=== PATIENT | female | born 1955 | race Caucasian/White ===

== ENCOUNTER 2019-10-01 07:41 | Outpatient (CLI) | payer BC, SELFPAY ==
--- NOTE | ~2019-10-01 | CT_ITS ---
EXAMINATION: CT chest w con DATE: 10/01/2019 08:16 INDICATION: Restaging lung cancer TECHNIQUE: Computed tomography (CT) of the chest was performed with 75 cc Omnipaque 350 intravenous c ontrast. The dose-length product was 244.08 mGy-cm. Automated exposure control and iterative reconstr uction technique were employed. COMPARISON: CT dated 05/24/2019 and 02/15/2019 FINDINGS: Stable left hilar lymphadenopathy. No significant vascular abnormality. No significant pleu ral or pericardial effusion. There is fatty infiltration of the liver. There is a left renal cyst par tially visualized. Stable appearance to bandlike consolidation in the left upper lobe, consistent wit h treated bronchogenic carcinoma. Moderate emphysema. No endobronchial lesions. No osteolytic or scle rotic lesions are identified. IMPRESSION: 1. Stable bandlike consolidation left upper lobe consistent with treated Isabella bronchogenic carcinoma . 2: Stable left hilar lymphadenopathy, reactive versus metastatic disease. Reviewed, dictated and finalized at location A. IMPRESSION: 1. Stable bandlike consolidation left upper lobe consistent with treated Isabella bronchogenic carcinoma. 2: Stable left hilar lymphadenopathy, reactive versus metastatic disease.
[2019-10-01 08:05] LABS: Estimated Glomerular Filt Rate > 60
== END 2019-10-01 07:42 | disposition home or self-care (01) ==
LOC: ANHIMG 07:43
PROVIDERS: PCP Family Medicine; Visit Provider Internal Medicine Medical Oncology
DX: C34.12 Malignant neoplasm of upper lobe, left bronchus or lung (principal); R59.0 Localized enlarged lymph nodes; R91.8 Other nonspecific abnormal finding of lung field
CPT/HCPCS: 36415; 71260; Q9967

== ENCOUNTER 2019-11-12 09:46 | Emergency (ER) | payer BC, SELFPAY ==
--- NOTE | ~2019-11-12 | XR_ITS ---
EXAMINATION: XR knee RT min 4V DATE: 11/12/2019 10:10 INDICATION: Right knee injury and pain. TECHNIQUE: 4 views of right knee were obtained. COMPARISON: None. FINDINGS: Bone alignment is normal. No fracture. There is severe osteoarthritis of medial compartment , mild osteoarthritis of lateral compartment, and moderate osteoarthritis of patellofemoral compartme nt. There is a small knee joint effusion. There are loose bodies in the posterior aspect of the knee joint. IMPRESSION: 1. Severe right knee osteoarthritis. 2. Small right knee joint effusion with loose bodies. Reviewed, dictated and finalized at location A.
[2019-11-12 09:51] VITALS: BP 186/65; PULSE 75; RESP 18; TEMP 36.9; O2SAT 95
--- NOTE | 2019-11-12 09:56 | ED.LOWEXIN ---
HPI - Extremity Injury (Lower) General Chief Complaint: Extremity Injury, Lower Stated Complaint: leg pain Time Seen by Provider: 11/12/19 09:51 Source: RN notes reviewed History of Present Illness HPI Narrative: Patient presents emergency department from home for right knee pain. Patient states symptoms began last night. She states she has been walking with a cane and she stood up and went to twist twisting her right knee. She states she had pain and swelling her right knee since that time she denies any falls denies any pain in the ankle or hip she states she did take a pain pill this morning with no relief Related Data Home Medications Medication Instructions Recorded Confirmed [id number] INHALATION 11/12/19 [Trelegy Ellipta] pantoprazole PO 11/12/19 11/12/19 Allergies Allergy/AdvReac Type Severity Reaction Status Date / Time Penicillins Allergy Unknown rash Verified 11/12/19 09:55 Review of Systems Review of Systems: Narrative: Gen.: Denies fevers or chills Musculoskeletal: See HPI Neuro: Denies numbness, tingling, weakness Skin: Denies rash Endo: Denies DM PMFSH Past Medical History Medical History Arthralgia Essential (primary) hypertension History of tobacco use Lung cancer Second hand smoke exposure Surgical History Surgical History History of bilateral tubal ligation Social History Social History Smoking packs per day: 1.5 Smoking cigarettes per day: 30.0 Years smoked: 40 Smoking pack-years: 60.00 Smoking status: Former smoker Tobacco type: cigarettes Second hand tobacco smoke exposure: Yes Alcohol intake: current Substance use: never Substance use type: does not use Gender identity (if verbalized by the patient): Female Exam Narrative: Exam Narrative: APPEARANCE: No acute distress, nontoxic, resting in bed Eyes: EOMI HEENT: Normocephalic, atraumatic, RESPIRATORY: No respiratory distress MUSCULOSKELETAl: Tender to palpation over the right anterior medial lateral knee with mild swelling, no tenderness of the right hip or ankle, pain with flexion greater than 45 degrees, dorsalis pedis pulse 2+, neurovascular intact NEURO: Awake and alert. Following commands, speech normal, no focal deficits SKIN:: Warm, dry. Normal Color no rash or lesions Course Course Emergency Course: Discussed with patient results of workup and diagnosis. Discussed need for follow-up with primary care, proper use of medication, and reasons to return to the emergency department. Patient understands and agrees to current treatment plan Vital Signs Vital signs: Vital Signs Temperature 98.4 F 11/12/19 09:51 Pulse Rate 75 11/12/19 09:51 Respiratory Rate 18 11/12/19 09:51 Blood Pressure 186/65 H 11/12/19 09:51 Pulse Oximetry 95 11/12/19 09:51 Temperature 98.4 F 11/12/19 09:51 Pulse Rate 75 11/12/19 09:51 Respiratory Rate 18 11/12/19 09:51 Blood Pressure 186/65 H 11/12/19 09:51 Pulse Oximetry 95 11/12/19 09:51 MDM - Extremity Injury (Lower) Imaging Data Radiologist's impression: ITS Impressions Knee X-Ray 11/12/19 10:17 IMPRESSION: 1. Severe right knee osteoarthritis. 2. Small right knee joint effusion with loose bodies. Discharge Plan Discharge Clinical Impression: Right knee sprain Patient Disposition: Home, Self-Care Condition: Stable Instructions: Antibiotic Form, Knee Sprain (ED) Additional Instructions: Return for increasing pain, numbness or tingling in extremities or any other symptoms of concern Prescriptions: No Action cholecalciferol (vitamin D3) 50,000 unit capsule 50,000 unit PO WEEKLY Qty: 8 RF: 0 benazepril-hydrochlorothiazide 20-12.5 mg tablet 1 tablet PO DAILY Qty: 30 RF: 3 pantoprazole 40 mg tablet,delayed release (DR/EC) PO RF: 0 Trelegy Ellip
[2019-11-12 10:52] VITALS: BP 176/83; PULSE 59; RESP 18; O2SAT 97
== END 2019-11-12 10:55 | disposition home or self-care (01) ==
PROVIDERS: Emergency Provider Emergency Medicine; PCP Family Medicine
DX: S83.91XA Sprain of unspecified site of right knee, initial encounter (principal); I10 Essential (primary) hypertension; Z85.118 Personal history of other malignant neoplasm of bronchus and lung; M17.11 Unilateral primary osteoarthritis, right knee; Z77.22 Contact with and (suspected) exposure to environmental tobacco smoke (acute) (chronic); Z87.891 Personal history of nicotine dependence; X50.9XXA Other and unspecified overexertion or strenuous movements or postures, initial encounter
CPT/HCPCS: 73564; 99283

== ENCOUNTER 2019-12-31 09:47 | Outpatient (CLI) | payer BC, SELFPAY ==
--- NOTE | ~2019-12-31 | CT_ITS ---
EXAMINATION: CT chest abdomen w con DATE: 12/31/2019 10:27 INDICATION: Malignant neoplasm of the upper lobe. The left lung TECHNIQUE: Transaxial computed tomographic images of the chest and abdomen were obtained after the ad ministration of 100 cc of Omnipaque 350 intravenous contrast. The dose-length product (DLP) was 745.5 9 mGy-cm. Automated exposure control and iterative reconstruction technique were employed. COMPARISON: 10/01/2019 FINDINGS: CHEST CT: There is stable left upper lobe opacity at the site of prior malignancy. Moderate emphysema is noted. No new pulmonary nodules are opacities are identified. There is no pleural effusion or pneumothorax. The heart size is normal. There is an unchanged 1.6 x 1.1 cm left hilar lymph node. ABDOMEN CT: The liver is diffusely low in attenuation when compared with the spleen, consistent with hepatic stea tosis. There is a small sliding hiatal hernia. The spleen, pancreas, gallbladder, and adrenal glands are normal. Cysts of the kidneys measure up to 5 cm on the left. There are no pathologically enlarged abdominal lymph nodes. There is moderate lumbar spondylosis. IMPRESSION: 1. Stable left upper lobe airspace opacity, consistent with treated malignancy. 2. Unchanged left hilar lymph node, consistent with stable metastatic disease or reactive. 3. No evidence of metastatic disease in the abdomen. Reviewed, dictated and finalized at location B. IMPRESSION: 1. Stable left upper lobe airspace opacity, consistent with treated malignancy. 2. Unchanged left hilar lymph node, consistent with stable metastatic disease o r reactive. 3. No evidence of metastatic disease in the abdomen.
[2019-12-31 10:17] LABS: Estimated Glomerular Filt Rate > 60
== END 2019-12-31 09:48 | disposition home or self-care (01) ==
LOC: ANHIMG 09:54
PROVIDERS: PCP Family Medicine; Visit Provider Internal Medicine Medical Oncology
DX: C34.12 Malignant neoplasm of upper lobe, left bronchus or lung (principal); R59.0 Localized enlarged lymph nodes
CPT/HCPCS: 36415; 71260; 74160; Q9967

== ENCOUNTER 2020-04-03 08:34 | Outpatient (CLI) | payer BC, SELFPAY ==
--- NOTE | ~2020-04-03 | CT_ITS ---
EXAMINATION: CT chest abdomen w con DATE: 04/03/2020 09:32 INDICATION: Staging small cell lung cancer. TECHNIQUE: Computed tomography (CT) of the chest and abdomen was performed with 100 mL Omnipaque-350 intravenous contrast. Automated exposure control and iterative reconstruction technique were employed . The dose-length product was 917.13 mGy-cm. COMPARISON: 12/31/2019, 05/24/2019 and 02/15/2019 FINDINGS: CHEST CT: Moderate emphysema. No significant interval change in a region of architectural distortion with bandl ni consolidation resulting in the left suprahilar region and extending cephalad along the posterior left upper lobe with some associated pleural thickening likely related to known history of lung cance r and secondary radiation and chemotherapy treatment. Mild dependent atelectasis in the right lower l obe. No other airspace opacities, suspicious pulmonary nodules or pleural effusion. Heart size is nor mal. No pericardial effusion. Thoracic aorta is normal in caliber with no dissection. The previously mildly enlarged left hilar lymph node which measured 1.6 x 1.1 cm on 05/24/2019 now normal in size me asuring 11 x 9 mm. No pathologically enlarged thoracic lymphadenopathy. Small sliding-type hiatal her annalisa. Moderate thoracic spondylosis. No suspicious lytic or blastic bone lesions. ABDOMEN CT: Subtle small focus of likely transient hepatic attenuation difference in segment 6 of the liver which is without change since 02/15/2019. Gallbladder, spleen, pancreas and adrenal glands are normal. Bila teral renal cysts the largest on the left measuring 5.0 cm. Visualized portions of the bowels are unr emarkable. No pathologically enlarged abdominal lymphadenopathy. Small amount of atherosclerotic calc ific calcification along the abdominal aorta. Moderate lumbar spondylosis. No suspicious lytic or alexis stic bone lesions. IMPRESSION: 1. Stable appearance of a bandlike region of left suprahilar/upper lobe atelectasis/scarring consiste nt with history of treated lung cancer. 2. Decrease in size of a previously mildly enlarged left hilar lymph node which may have been reactiv e or treated metastatic disease. No other lesions suspicious for metastatic disease in the chest or a bdomen. Reviewed, dictated and finalized at location A. ETING AUTOMATION ANALYST IMPRESSION: 1. Stable appearance of a bandlike region of left suprahilar/upper lobe atelect asis/scarring consistent with history of treated lung cancer. 2. Decrease in size of a previously mildly enlarged left hilar lymph node which may have been reactive or treated metastatic disease. No other lesions suspici ous for metastatic disease in the chest or abdomen.
[2020-04-03 09:16] LABS: Estimated Glomerular Filt Rate > 60
== END 2020-04-03 08:35 | disposition home or self-care (01) ==
PROVIDERS: PCP Family Medicine; Visit Provider Internal Medicine Medical Oncology
DX: C34.12 Malignant neoplasm of upper lobe, left bronchus or lung (principal); J43.9 Emphysema, unspecified; N28.1 Cyst of kidney, acquired
CPT/HCPCS: 71260; 74160; Q9967

== ENCOUNTER 2020-06-01 13:37 | Outpatient (CLI) | payer BC, SELFPAY ==
--- NOTE | ~2020-06-01 | CT_ITS ---
EXAMINATION: CT soft tissue neck chest w EXAM DATE: 06/01/2020 15:16 INDICATION: Malignant neoplasm of upper lobe of left lung, adenopathy. Radiation and chemotherapy ellen atment. TECHNIQUE: Spiral CT of the neck and chest was performed following intravenous injection of 75 mL Omn ipaque 350. Axial, coronal and sagittal images of the neck were reviewed. Axial, coronal and sagitt al images of the chest were reviewed. Coronal maximum intensity pixel images of chest reviewed. The dose-length product (DLP) for this examination was 904.54 mGy-cm. The exposure was tailored accordi ng to patient size (auto mA exposure control), and iterative reconstruction (ASIR) was used as additi onal dose reduction technique. 04/03/2020 FINDINGS: NECK: The thyroid gland is unremarkable. The submandibular and parotid glands are symmetric. Ther e is no cervical lymphadenopathy. There are no masses identified. The airway is unremarkable. P arapharyngeal and pre-glottic fat planes are preserved. The opacified vasculature is patent. The orbits are unremarkable. Visualized sinuses and mastoid air cells are well aerated. There is mode rate cervical spondylosis. CHEST: There is left upper lobe along the region of linear density extending from the hilum toward th e apex unchanged compared to prior study, probably patient's treated lung cancer. There is moderate e mphysema. There are no pleural or pericardial effusions. Tracheobronchial tree is patent. There is no mediastinal, hilar or axillary lymphadenopathy. There is no pneumothorax. Heart normal in size. No evidence of coronary arterial calcification. Left adrenal nodularity is unchanged. There is mild thoracic spondylosis without osteoblastic or osteolytic lesions identified. IMPRESSION: 1. Stable treated left upper lobe malignancy. 2. Moderate emphysema. 3. Moderate cervical spondylosis. Reviewed, dictated and finalized at location A. IC OFFICE MANAGER
[2020-06-01 14:40] LABS: Estimated Glomerular Filt Rate > 60
== END 2020-06-01 13:38 ==
PROVIDERS: PCP Family Medicine; Visit Provider Internal Medicine Medical Oncology
DX: C34.12 Malignant neoplasm of upper lobe, left bronchus or lung (principal); R59.1 Generalized enlarged lymph nodes; M54.2 Cervicalgia; R07.9 Chest pain, unspecified; J43.9 Emphysema, unspecified; M47.812 Spondylosis without myelopathy or radiculopathy, cervical region
CPT/HCPCS: 70491; 71260; Q9967

== ENCOUNTER → 2020-10-04 08:12 | Outpatient (CLI) | payer BC, SELFPAY ==
--- NOTE | ~2020-10-04 | CT_ITS ---
EXAMINATION:CT diagnostic chest wo con DATE: 10/04/2020 08:37 INDICATION: Malignant neoplasm of the upper lobe of left lung. TECHNIQUE: Computed tomography (CT) of the chest was performed without intravenous contrast. Automate d exposure control and iterative reconstruction technique were employed. The dose-length product (DLP ) was 376.98 mGy-cm. COMPARISON: Chest CT 06/01/2020, 10/01/19, 05/24/19 FINDINGS: There is mild emphysema. There is mild scarring at right lung apex. There is mild atelectas is in right middle lobe and lingula. In the apicoposterior segment left upper lobe and superior segme nt left lower lobe, there are airspace opacities and septal thickening with volume loss. No pleural e ffusion. The heart size is normal. No pericardial effusion. There are no pathologically enlarged lymp h nodes. There is diffuse hepatic steatosis. There is a chronic 12 mm mass in left adrenal gland tanesha uring low-attenuation, consistent with an adenoma. There is a 4.1 cm cyst in left kidney. There is a small sliding hiatal hernia. There is mild thoracic spondylosis. IMPRESSION: 1. Airspace opacities and septal thickening with volume loss involving apical posterior segment left upper lobe and superior segment left lower lobe, stable from 10/01/2019, consistent with primary bronch ogenic carcinoma and radiation fibrosis. Reviewed, dictated and finalized at location B. IMPRESSION: 1. Airspace opacities and septal thickening with volume loss involving apical p osterior segment left upper lobe and superior segment left lower lobe, stable f rom 10/01/2019, consistent with primary bronchogenic carcinoma and radiation fibr osis.
== END ==
PROVIDERS: PCP Family Medicine; Visit Provider Internal Medicine Medical Oncology
DX: C34.12 Malignant neoplasm of upper lobe, left bronchus or lung (principal); K44.9 Diaphragmatic hernia without obstruction or gangrene
CPT/HCPCS: 71250

== ENCOUNTER 2021-04-02 08:34 | Outpatient (CLI) | payer BC, SELFPAY ==
--- NOTE | ~2021-04-02 | CT_ITS ---
EXAMINATION: CT diagnostic chest wo con DATE: 04/02/2021 08:54 INDICATION: Malignant neoplasm of the left upper lobe TECHNIQUE: Computed tomography (CT) of the chest was performed without intravenous contrast. The dose -length product (DLP) was 399.31 mGy-cm. Automated exposure control and iterative reconstruction tech nique were employed. COMPARISON: 10/04/2020 FINDINGS: There is mild emphysema. There are persistent unchanged airspace opacities and volume loss posteriorly in the left upper lobe. No acute opacities are identified. Right apical scarring is noted . There is no pleural effusion or pneumothorax. No pathologically enlarged thoracic lymph nodes are i dentified. The heart size is normal. There is mild thoracic spondylosis. There is a partially imaged 3.8 cm cyst of the left kidney. IMPRESSION: 1. Stable left apical airspace opacities and volume loss, consistent with treated primary bronchogeni c carcinoma. Reviewed, dictated and finalized at location B. TIONSHIP SPECIALIST IMPRESSION: 1. Stable left apical airspace opacities and volume loss, consistent with treat ed primary bronchogenic carcinoma.
== END 2021-04-02 08:35 ==
LOC: MICIMG 08:35
PROVIDERS: PCP Family Medicine; Visit Provider Internal Medicine Medical Oncology
DX: C34.12 Malignant neoplasm of upper lobe, left bronchus or lung (principal); R91.8 Other nonspecific abnormal finding of lung field
CPT/HCPCS: 71250

== ENCOUNTER 2021-08-28 12:03 | Outpatient (CLI) | payer BC, SELFPAY ==
--- NOTE | ~2021-08-28 | CT_ITS ---
EXAMINATION: CT abdomen pelvis w con EXAM DATE: 08/28/2021 12:42 INDICATION: R10.31 - Right lower quadrant pain . TECHNIQUE: Spiral CT of the abdomen and pelvis was performed following intravenous injection of 100 m L Omnipaque 350. Axial, coronal and sagittal images of the abdomen and pelvis were reviewed. The do se-length product (DLP) for this examination was 611.83 mGy-cm. The exposure was tailored according to patient size (auto mA exposure control), and iterative reconstruction (ASIR) was used as additiona l dose reduction technique. Comparison is made to prior examination from 04/03/2020. FINDINGS: Stable left adrenal nodularity, probably adenomas. Right adrenal gland, liver, spleen, panc reas are unremarkable. Gallbladder is unremarkable. No biliary obstruction. Portal and splenic vei ns are patent. Kidneys enhance symmetrically. There is no hydronephrosis. There is a left renal cy st measuring 4.6 cm. The uterus is unremarkable. The bladder is unremarkable. There is no retroper itoneal or pelvic lymphadenopathy. There are no findings to suggest appendicitis. A few scattered colonic diverticula. The stomach and s mall bowel are unremarkable. There is expected amount of colonic stool. No free intraperitoneal ga s. The heart is normal in size. There are no pericardial or pleural effusions. The lung bases are unremarkable. There are no osteoblastic or osteolytic lesions identified. IMPRESSION: 1. No acute intra-abdominal findings. 2. Left adrenal adenomas. 3. Mild colonic diverticulosis. Reviewed, dictated and finalized at location A.
[2021-08-28 12:37] LABS: Estimated Glomerular Filt Rate > 60
[2021-08-28 13:34] LABS: Hematocrit 43.2 % (37.0-47.0); Hemoglobin 13.5 g/dL (12.0-15.0); Mean Corpuscular HGB Conc 31.3 g/dl (32-36); Mean Corpuscular Hemoglobin 29.2 pg (26-34); Mean Corpuscular Volume 93.5 fl (80-100); Mean Platelet Volume 9.7 fl (7.4-10.4); Platelet Count Result 260 k/mm3 (150-375); Red Blood Count 4.62 M/mm3 (4.2-5.4); Red Cell Distribution Width 13.2 % (11.5-14.5)
[2021-08-28 13:48] LABS: Alanine Aminotransferase 32 U/L (4-35); Albumin Level 4.4 g/dL (3.5-5.1); Alkaline Phosphatase 72 U/L (38-126); Amylase 70 U/L (30-110); Anion Gap 9 mmol/L (8-16); Aspartate Amino Transferase 41 U/L (14-36); Bilirubin,Total 0.3 mg/dL (0.2-1.3); Blood Urea Nitrogen 16 mg/dL (7-17); Calcium 8.7 mg/dL (8.4-10.2); Carbon Dioxide 29 mmol/L (22-30); Chloride 100 mmol/L (98-107); Estimated Glomerular Filt Rate > 60; Glucose 106 mg/dL (65-110); Lipase 108 U/L (23-300); Potassium 3.9 mmol/L (3.4-5.0); Sodium 138 mmol/L (137-145)
== END 2021-08-28 12:04 | disposition home or self-care (01) ==
PROVIDERS: PCP Family Medicine; Visit Provider Nurse Practitioner Family
DX: R10.31 Right lower quadrant pain (principal); R50.9 Fever, unspecified; R10.13 Epigastric pain; D35.02 Benign neoplasm of left adrenal gland; K57.90 Diverticulosis of intestine, part unspecified, without perforation or abscess without bleeding
CPT/HCPCS: 74177; 80053; 82150; 83690; 85027; Q9967

== ENCOUNTER 2021-09-28 09:29 | Outpatient (CLI) | payer BC, SELFPAY ==
--- NOTE | ~2021-09-28 | CT_ITS ---
EXAMINATION: CT diagnostic chest w con DATE: 09/28/2021 10:24 INDICATION: Malignant neoplasm of the upper lobe of the left lung TECHNIQUE: Transaxial computed tomographic images of the chest were obtained after the administration of 75 cc of Omnipaque 350 intravenous contrast. The dose-length product (DLP) was 421.50 mGy-cm. Ite rative reconstruction was used. COMPARISON: 04/02/2021 FINDINGS: There is mild emphysema. There are unchanged airspace opacities with volume loss posteriorl y in the left upper lobe. No new airspace opacities or pulmonary nodules are identified. There is mil d atelectasis in the right lower lobe. There is no pleural effusion or pneumothorax. No pathological ly enlarged thoracic lymph nodes are identified. The heart size is normal. The liver is diffusely low in attenuation when compared with the spleen, consistent with hepatic steatosis. There is mild thora cic spondylosis. IMPRESSION: 1. Stable volume loss and airspace opacity in the left upper lobe, consistent with treated malignancy . Reviewed, dictated and finalized at location B. IMPRESSION: 1. Stable volume loss and airspace opacity in the left upper lobe, consistent w ith treated malignancy.
--- NOTE | ~2021-09-28 | CT_ITS ---
EXAMINATION: CT brain wo con DATE: 09/28/2021 10:11 INDICATION: New onset headache. TECHNIQUE: Computed tomography (CT) of the head was performed without intravenous contrast. The mA wa s adjusted according to patient size. Iterative reconstruction technique was employed. The dose-lengt h product was 599.57 mGy-cm. COMPARISON: Head CT 06/18/2018 FINDINGS: There is no intracranial hemorrhage, acute infarction, or abnormal intracranial mass lesion . The ventricles are normal in size. The orbits are normal. There is mild mucosal thickening in the p aranasal sinuses. The mastoid air cells are normal. IMPRESSION: 1. Normal brain. Reviewed, dictated and finalized at location A. IMPRESSION: 1. Normal brain.
[2021-09-28 10:10] LABS: Estimated Glomerular Filt Rate > 60
== END 2021-09-28 09:30 ==
LOC: MICIMG 09:30
PROVIDERS: PCP Family Medicine; Visit Provider Internal Medicine Medical Oncology
DX: R51.9 Headache, unspecified (principal); Z85.118 Personal history of other malignant neoplasm of bronchus and lung; R91.8 Other nonspecific abnormal finding of lung field
CPT/HCPCS: 70450; 71260; Q9967

== ENCOUNTER 2021-12-31 08:33 | Outpatient (CLI) | payer BC, SELFPAY ==
--- NOTE | ~2021-12-31 | MR_ITS ---
EXAMINATION: MR pelvis wo/w con DATE: 12/31/2021 10:20 INDICATION: Pelvic pain. Low abdominal pain. Lung cancer. TECHNIQUE: Magnetic resonance imaging (MRI) of the pelvis was performed without and with 15 mL MultiH ance intravenous contrast. COMPARISON: CT abdomen and pelvis 08/28/2021 FINDINGS: There is a 4.0 cm cyst in left kidney. There are no dilated loops of bowel. There is diverticulosis o f the colon without evidence of diverticulitis. There is a nabothian cyst in the cervix. The adnexa a re normal. There are no pathologically enlarged lymph nodes. There is no free intraperitoneal fluid. There is moderate right hip osteoarthritis and mild left hip osteoarthritis. There is mild trochanter ic bursitis on the left. There are partial tears of the origins of the hamstring tendons bilaterally. IMPRESSION: 1. No specific etiology for the patient's symptoms. Reviewed, dictated and finalized at location A.
== END 2021-12-31 08:34 ==
PROVIDERS: PCP Family Medicine; Visit Provider Internal Medicine Medical Oncology
DX: R10.2 Pelvic and perineal pain (principal)
CPT/HCPCS: 72197; A9577

== ENCOUNTER 2022-04-29 09:40 | Outpatient (CLI) | payer BC, SELFPAY ==
--- NOTE | ~2022-04-29 | CT_ITS ---
EXAMINATION: CT diagnostic chest w con DATE: 04/29/2022 10:16 INDICATION: Lung cancer TECHNIQUE: Computed tomography (CT) of the chest was performed without intravenous contrast. The dose -length product was 249.83 mGy-cm. Automated exposure control and iterative reconstruction technique were employed. COMPARISON: CT dated 09/28/2021 and 04/02/2021 FINDINGS: There is a 5 mm right upper lobe nodule, image 22, not definitely seen on 04/02/2021. There is emphysema. There is persistent volume loss with airspace consolidation in the left upper lobe, wi thout significant change, consistent with treated malignancy. No endobronchial lesions. No thoracic l ymphadenopathy. No significant pleural or pericardial effusion. There is a 4.6 cm left renal cyst. Th ere is fatty infiltration of the liver. Small hiatal hernia. No pneumothorax. No endobronchial lesion s. Mild thoracic spondylosis. No acute osseous abnormality. IMPRESSION: 1. New 5 mm right upper lobe nodule, image 22, probably benign. Follow-up low dose CT chest in 6 [facility] recommended. 2: Stable volume loss and airspace consolidation of the left upper lobe, consistent with treated fabricio gnancy. Reviewed, dictated and finalized at location A. E PROJECTIONIST IMPRESSION: 1. New 5 mm right upper lobe nodule, image 22, probably benign. Follow-up low d ose CT chest in 6 months recommended. 2: Stable volume loss and airspace consolidation of the left upper lobe, consis tent with treated malignancy.
[2022-04-29 10:06] LABS: Estimated Glomerular Filt Rate > 60
== END 2022-04-29 09:41 ==
PROVIDERS: PCP Family Medicine; Visit Provider Internal Medicine Medical Oncology
DX: C34.12 Malignant neoplasm of upper lobe, left bronchus or lung (principal); R91.1 Solitary pulmonary nodule
CPT/HCPCS: 71260; Q9967

== ENCOUNTER 2022-07-26 09:18 | Outpatient (CLI) | payer BC, SELFPAY ==
--- NOTE | ~2022-07-26 | CT_ITS ---
EXAMINATION:CT diagnostic chest w con DATE: 07/26/2022 09:52 INDICATION: Malignant neoplasm of upper lobe, left bronchus or lung. TECHNIQUE: Computed tomography (CT) of the chest was performed with 75 mg Omnipaque 350 intravenous c ontrast. Automated exposure control and iterative reconstruction technique were employed. The dose-le ngth product (DLP) was 348.91 mGy-cm. COMPARISON: Chest CT 04/29/2022, 09/28/21, 05/03/18 FINDINGS: There is mild emphysema. There is a 7 mm nodule abutting the pleura in right upper lobe. Th ere is mild atelectasis bilaterally. There is a 6.7 x 2.7 cm mass involving apical posterior segment left upper lobe and superior segment left lower lobe with volume loss, stable from 04/29/2022. There i s mild elevation of right hemidiaphragm. No pleural effusion. The heart size is normal in early fusio n. There is a small sliding hiatal hernia. There is a 4.3 cm cyst in left kidney. There is severe cer vical spondylosis and lower thoracic spondylosis. IMPRESSION: 1. 7 mm nodule in right upper lobe, stable from 04/29/2022 and worsened from 09/28/2021, probably benign . Noncontrast low-dose chest CT is recommended in 6 months. 2. Mass involving left upper lobe and superior segment left lower lobe with volume loss, stable from 04/29/2022, consistent with primary bronchogenic carcinoma and radiation fibrosis. 3. Mild emphysema. Reviewed, dictated and finalized at location A. TAL PHOTOGRAPHIC PRINTER IMPRESSION: 1. 7 mm nodule in right upper lobe, stable from 04/29/2022 and worsened from 09/28, probably benign. Noncontrast low-dose chest CT is recommended in 6 month s. 2. Mass involving left upper lobe and superior segment left lower lobe with vol ume loss, stable from 04/29/2022, consistent with primary bronchogenic carcinoma and radiation fibrosis. 3. Mild emphysema.
[2022-07-26 09:35] LABS: Estimated Glomerular Filt Rate > 60
== END 2022-07-26 09:19 ==
LOC: MICIMG 09:19
PROVIDERS: PCP Family Medicine; Visit Provider Internal Medicine Medical Oncology
DX: C34.12 Malignant neoplasm of upper lobe, left bronchus or lung (principal); R91.1 Solitary pulmonary nodule; J43.9 Emphysema, unspecified
CPT/HCPCS: 71260; Q9967

== ENCOUNTER 2022-08-27 08:44 | Outpatient (CLI) | payer BC, SELFPAY ==
--- NOTE | ~2022-08-27 | PE_ITS ---
EXAMINATION: PET skull to mid thigh DATE: 08/27/2022 10:57 INDICATION: Malignant neoplasm of upper lobe of left lung. TECHNIQUE: Blood glucose level was 118 mg/dL. 10.442 mCi of 18-fluorodeoxyglucose (18-FDG) was admini stered i.v. Low dose computed tomography (CT) images were acquired from the base of the brain to the proximal thighs for attenuation correction and anatomic localization. Automated exposure control was employed. Dose-length product (DLP) was 756 mGy-cm. Positron emission tomography (PET) images were ac quired in the same distribution. COMPARISON: Chest CT 07/26/2022 FINDINGS: Head/neck: There are no pathologically enlarged lymph nodes. Chest: There is mild emphysema. There is a 6 mm nodule in right upper lobe with maximum SUV of 2.7. T here are airspace opacities in left upper lobe and superior segment left lower lobe with volume loss and architectural distortion with maximum SUV of 3.9. No pleural effusion. The heart size is normal. No pericardial effusion. There is no mediastinal lymphadenopathy. There is a small sliding hiatal her annalisa. Abdomen/pelvis/proximal thighs: Normal liver maximum SUV is 5.0. The liver, gallbladder, spleen, panc reas, and right adrenal gland are normal. There is a 14 mm mass in left adrenal gland without increas ed activity measuring low-attenuation, consistent with an adenoma. Right kidney is normal. There is a 4.5 cm cyst in left kidney. There are no dilated loops of bowel. There are no pathologically enlarge d lymph nodes. There is no free intraperitoneal fluid. There is no osseous malignancy. IMPRESSION: 1. 6 mm nodule in right lung upper lobe with maximum SUV of 2.7, worsened from 09/28/21, suspicious for metastatic disease. 2. Airspace opacities in left upper lobe and superior segment left lower lobe with volume loss and ma ximum SUV of 3.9, consistent with primary bronchogenic carcinoma and changes of radiation therapy. Reviewed, dictated and finalized at location A. IMPRESSION: 1. 6 mm nodule in right lung upper lobe with maximum SUV of 2.7, worsened from 09/28/21, suspicious for metastatic disease. 2. Airspace opacities in left upper lobe and superior segment left lower lobe w ith volume loss and maximum SUV of 3.9, consistent with primary bronchogenic ca rcinoma and changes of radiation therapy.
[2022-08-27 09:33] LABS: Glucose Point of Care 118 mg/dl (65-105)
== END 2022-08-27 08:45 | disposition home or self-care (01) ==
LOC: ANHIMG 08:49
PROVIDERS: PCP Family Medicine; Visit Provider Internal Medicine Medical Oncology
DX: C34.12 Malignant neoplasm of upper lobe, left bronchus or lung (principal)
CPT/HCPCS: 78815; A9552

== ENCOUNTER 2023-02-24 09:34 | Outpatient (CLI) | payer BC, SELFPAY ==
--- NOTE | ~2023-02-24 | CT_ITS ---
CT Scan of the Chest without Contrast: Clinical Indication: Lung cancer, right pulmonary nodule Technique: Contiguous sections were acquired throughout the chest without intravenous contrast. Dose reduction technique was used on this scan by utilizing automated exposure control and iterative recon struction technique. The dose-length product (DLP) was 277.73 mGy-cm. COMPARISON: 10/28/2022 and 07/26/2022 Findings: There is no evidence of any significant mediastinal, hilar or axillary lymphadenopathy. The mediastin al soft tissues appear normal. There is no evidence of pleural or pericardial effusion. There is stable left pleural-based consolidation at the posterior left upper lobe extending to the case perior segment left lower lobe. Medial right apical pulmonary nodule measures 5 mm, mildly decreased in size from most recent prior exam. Mild emphysema noted. Images through the upper abdomen reveal stable left adrenal nodule. Impression: Stable pleural-based consolidation the posterior left upper lobe/superior segment left lower lobe, co mpatible with post therapy change/treated disease. 5 mm medial right apical pulmonary nodule, decreased from prior exam. This could reflect interval par tial response to therapy of a metastatic lesion. Mild emphysema. Stable left adrenal nodule, indeterminate. Reviewed, dictated and finalized at location M. Impression: Stable pleural-based consolidation the posterior left upper lobe/superior segme nt left lower lobe, compatible with post therapy change/treated disease. 5 mm medial right apical pulmonary nodule, decreased from prior exam. This coul d reflect interval partial response to therapy of a metastatic lesion. Mild emphysema. Stable left adrenal nodule, indeterminate.
== END 2023-02-24 09:35 | disposition home or self-care (01) ==
LOC: ANHIMG 09:40
PROVIDERS: PCP Family Medicine; Visit Provider Internal Medicine Medical Oncology
DX: C34.12 Malignant neoplasm of upper lobe, left bronchus or lung (principal); R91.1 Solitary pulmonary nodule; J43.9 Emphysema, unspecified; D35.02 Benign neoplasm of left adrenal gland; R91.8 Other nonspecific abnormal finding of lung field
CPT/HCPCS: 71250

== ENCOUNTER 2023-05-22 07:34 | Outpatient (CLI) | payer BC, SELFPAY ==
--- NOTE | ~2023-05-22 | PE_ITS ---
EXAMINATION: PET skull to mid thigh DATE: 05/22/2023 10:06 INDICATION: Malignant neoplasm of upper lobe of left lung. TECHNIQUE: Blood glucose level was 99 mg/dL. 9.283 mCi of 18-fluorodeoxyglucose (18-FDG) was administ ered i.v. Low dose computed tomography (CT) images were acquired from the base of the brain to the pr oximal thighs for attenuation correction and anatomic localization. Automated exposure control was em ployed. Dose-length product (DLP) was 1147 mGy-cm. Positron emission tomography (PET) images were acq uired in the same distribution. COMPARISON: PET CT 08/27/2022, chest CT 02/24/2023, 04/29/22 FINDINGS: Head/neck: There are no pathologically enlarged lymph nodes. Chest: There is mild emphysema. There are airspace opacities with volume loss involving left upper lo be and superior segment left lower lobe with maximum SUV of 4.0. There are groundglass opacities in p aramediastinal right upper lobe, consistent with changes of radiation therapy. There is a 5 mm nodule without increased activity within this volume, decreased from 6 mm on 08/27/2022. No pleural effusion. The heart size is normal. No pericardial effusion. Abdomen/pelvis/proximal thighs: The liver, gallbladder, spleen, pancreas, and right kidney are normal . There is a 4.6 cm cyst in left kidney. There are no dilated loops of bowel. There is diverticulosis of the colon without evidence of diverticulitis. The appendix is not visualized. There is calcified atherosclerosis of the aorta and many of the other arteries. There is a small sliding hiatal hernia. There are no pathologically enlarged lymph nodes. There is no free intraperitoneal fluid. There is no osseous metastatic disease. IMPRESSION: 1. Chronic airspace opacities with volume loss and mildly increased activity involving left upper lob e and superior segment left lower lobe, consistent with primary bronchogenic carcinoma and changes of radiation therapy. 2. 5 mm right upper lobe nodule without increased activity with slight improvement. This finding may be metastatic disease or changes of radiation therapy. Reviewed, dictated and finalized at location A. TRAVELING IMPRESSION: 1. Chronic airspace opacities with volume loss and mildly increased activity in volving left upper lobe and superior segment left lower lobe, consistent with p rimary bronchogenic carcinoma and changes of radiation therapy. 2. 5 mm right upper lobe nodule without increased activity with slight improvem ent. This finding may be metastatic disease or changes of radiation therapy.
[2023-05-22 07:53] LABS: Glucose Point of Care 99 mg/dl (65-105)
== END 2023-05-22 07:35 | disposition home or self-care (01) ==
PROVIDERS: PCP Family Medicine; Visit Provider Internal Medicine Medical Oncology
DX: C34.12 Malignant neoplasm of upper lobe, left bronchus or lung (principal); R91.1 Solitary pulmonary nodule; R91.8 Other nonspecific abnormal finding of lung field; Z85.118 Personal history of other malignant neoplasm of bronchus and lung
CPT/HCPCS: 78815; A9552

== ENCOUNTER 2023-08-29 08:41 | Outpatient (CLI) | payer BC, SELFPAY ==
--- NOTE | ~2023-08-29 | CT_ITS ---
EXAMINATION: CT diagnostic chest w con DATE: 08/29/2023 09:09 INDICATION: Malignant neoplasm of upper lobe, left bronchus or lung TECHNIQUE: Computed tomography (CT) of the chest was performed with 100 mL Omnipaque-350 intravenous contrast. Additional 3D reconstructions utilizing coronal maximum intensity projection (MIP) were per formed. Automated exposure control and iterative reconstruction technique were employed. The dose-charley gth product was 237.16 mGy-cm. COMPARISON: 02/24/2023 and PET/CT dated 05/22/2023 FINDINGS: Mild emphysema. No interval change in a region of consolidation with associated volume loss involving the posterior segment of the left upper lobe and immediately adjacent superior segment of the left l ower lobe consistent with scarring related to treated lung cancer. Stable appearance of some groundgl ass opacity with architectural distortion at the paramediastinal right upper lobe likely related to a dditional radiation fibrosis. No interval change in an approximately 5 mm nodule within this region o f groundglass opacity. There is an additional unchanged approximately 1.5 cm ill-defined subsolid nod ule in the right lower lobe. No new or enlarging pulmonary nodules, pneumonia, pulmonary edema or ple ural effusion. Heart size is normal. No pericardial effusion. Thoracic aorta is normal in caliber wit h no dissection. No pathologically enlarged thoracic lymphadenopathy. Small sliding-type hiatal herni a. 4.5 cm left renal cyst. Moderate to severe lower thoracic predominant spondylosis. IMPRESSION: 1. Stable appearance of chronic consolidation with volume loss at the posterior segment upper lobe an d superior segment left lower lobe consistent with primary bronchogenic carcinoma and change of radia tion treatment. 2. No interval change in a likely benign 5 mm nodule within an additional small region of radiation f ibrosis in the paramediastinal right upper lobe. 3. No interval change in a 1.5 cm focus of groundglass opacity in the right lower lobe. This most lik omari infectious/inflammatory in etiology but would recommend continued one-year follow-up chest CT. 4. Small sliding-type hiatal hernia. Reviewed, dictated and finalized at location A. IMPRESSION: 1. Stable appearance of chronic consolidation with volume loss at the posterior segment upper lobe and superior segment left lower lobe consistent with primar y bronchogenic carcinoma and change of radiation treatment. 2. No interval change in a likely benign 5 mm nodule within an additional small region of radiation fibrosis in the paramediastinal right upper lobe. 3. No interval change in a 1.5 cm focus of groundglass opacity in the right low er lobe. This most likely infectious/inflammatory in etiology but would recomme nd continued one-year follow-up chest CT. 4. Small sliding-type hiatal hernia.
[2023-08-29 08:59] LABS: Estimated Glomerular Filt Rate > 60
== END 2023-08-29 08:42 ==
PROVIDERS: PCP Internal Medicine Medical Oncology; Visit Provider Internal Medicine Medical Oncology
DX: C34.12 Malignant neoplasm of upper lobe, left bronchus or lung (principal); K44.9 Diaphragmatic hernia without obstruction or gangrene
CPT/HCPCS: 71260; Q9967

== ENCOUNTER 2023-11-15 13:38 | Emergency (ER) | payer BC, SELFPAY ==
--- NOTE | ~2023-11-15 | CT_ITS ---
EXAMINATION: CT abdomen pelvis w con DATE: 11/15/2023 15:11 INDICATION: Umbilical abdominal pain. Right lower quadrant tenderness. Constipation. TECHNIQUE: Computed tomography (CT) of the abdomen and pelvis was performed with 100 mL Omnipaque 350 intravenous contrast. Automated exposure control and iterative reconstruction technique were employe d. The dose-length product was 610.44 mGy-cm. COMPARISON: CT abdomen and pelvis 08/28/2021 FINDINGS: The visualized portions of lung bases demonstrate mild atelectasis. There is mild emphysema . No pleural effusion. The heart size is normal. No pericardial effusion. There is a small sliding hi atal hernia. The liver, gallbladder, spleen, pancreas, and right adrenal gland are normal. There is a stable 17 mm mass in left adrenal gland, likely an adenoma. There are cysts in the kidneys measuring up to 4.4 cm is in the left. There are no dilated loops of bowel. The appendix is not visualized. Th ere is calcified atherosclerosis of the aorta and many of the other arteries. There are no pathologic ally enlarged lymph nodes. There is no free intraperitoneal fluid. There is severe lumbar and lower t horacic spondylosis. IMPRESSION: 1. Small sliding hiatal hernia. Reviewed, dictated and finalized at location E.
[2023-11-15 13:39] VITALS: BP 156/76; PULSE 77; RESP 16; TEMP 36.6; O2SAT 96
[2023-11-15 13:57] LABS: Basophils Percent Auto 0.3 % (0.2-1.2); Eosinophils Absolute Auto 0.1 K/mm3 (0-0.3); Eosinophils Percent Auto 0.9 % (0-4.4); Hematocrit 44.2 % (37.0-47.0); Hemoglobin 14.3 g/dL (12.0-15.0); Immature Granulocyte Absolute 0.01 K/mm3 (0.00-0.031); Immature Granulocyte Percent A 0.1 % (0-0.5); Lymphocytes Percent Auto 34.1 % (18.3-44.2); Mean Corpuscular HGB Conc 32.4 g/dl (32-36); Mean Corpuscular Hemoglobin 28.5 pg (26-34); Mean Platelet Volume 9.5 fl (7.4-10.4); Monocytes Absolute Auto 0.5 K/mm3 (0.1-0.6); Monocytes Percent Auto 7.6 % (2.6-8.5); Neutrophils Absolute Auto 3.8 K/mm3 (1.3-6.7); Platelet Count Result 234 k/mm3 (150-375); Red Blood Count 5.02 M/mm3 (4.2-5.4); Red Cell Distribution Width 13.4 % (11.5-14.5); White Blood Count 6.7 K/mm3 (4.5-10.0)
[2023-11-15 13:58] LABS: Appearance Urine Clear (Clear); Bilirubin Urine Negative (Negative); Blood Urine Negative (Negative); Color Urine Yellow (Yellow); Glucose Urine UA Negative (Negative); Ketones Urine Negative (Negative); Leukocyte Esterase Ur Negative LEU/UL (Negative); Nitrate Urine Negative (Negative); Protein Urine Negative (Negative); Specific Grav Ur 1.007 (1.001-1.035); Urobilinogen Urine 0.2 mg/dL (<2.0)
[2023-11-15 14:05] LABS: Add Urine Microscopic? NO
[2023-11-15 14:26] LABS: Alanine Aminotransferase 21 U/L (6-35); Albumin Level 4.9 g/dL (3.5-5.1); Alkaline Phosphatase 66 U/L (38-126); Anion Gap 9 mmol/L (4-12); Aspartate Amino Transferase 30 U/L (14-36); Bilirubin,Total 0.5 mg/dL (0.2-1.3); Blood Urea Nitrogen 15 mg/dL (7-17); Calcium 9.5 mg/dL (8.4-10.2); Carbon Dioxide 28 mmol/L (22-30); Chloride 101 mmol/L (98-107); Estimated CRCL calculation 55 ml/min; Estimated Glomerular Filt Rate > 60; Glucose 113 mg/dL (65-110); Lipase 142 U/L (23-300); Potassium 3.6 mmol/L (3.4-5.0); Sodium 138 mmol/L (137-145)
--- NOTE | 2023-11-15 14:50 | ED.ABDPAIN ---
HPI - Abdominal Pain General Chief Complaint: Abdominal Pain Stated Complaint: abd pain Time Seen by Provider: 11/15/23 14:41 Source: patient Mode of arrival: ambulatory Limitations: no limitations History of Present Illness HPI narrative: This is a 68-year-old female who presents to the ED with chief complaint of right-sided abdominal pain beginning earlier today. Patient reports that she had some epigastric pain yesterday but the pain seems to have migrated over to the right side. She states she took hydrocodone this morning around 1030 which helped the pain is still somewhat present. Denies fevers, chills, nausea, vomiting, diarrhea, GI bleeding, urinary symptoms, flank pain, chest pain, shortness of breath, cough. Related Data Allergies Allergy/AdvReac Type Severity Reaction Status Date / Time Penicillins Allergy Unknown rash Verified 11/15/23 13:38 Review of Systems Review of Systems: All systems as dictated in HPI [facility] Past Medical History Medical History Arthralgia Arthritis BMI 29.0-29.9,adult BMI 31.0-31.9,adult BMI 32.0-32.9,adult BMI 33.0-33.9,adult Essential (primary) hypertension History of tobacco use Lung cancer in remission Obese Right knee DJD Second hand smoke exposure Skin cancer Vision abnormalities Weight gain Surgical History Surgical History History of bilateral tubal ligation Family History Family History Father Mother Sibling Arthritis Rheumatoid arthritis Other Hypertension Malignant neoplasm Social History Social History Smoking packs per day: 1.5 Smoking cigarettes per day: 30.0 Years smoked: 40 Smoking pack-years: 60.00 Smoking status: Former smoker Second hand tobacco smoke exposure: Yes Smoking end date: 05/25/18 Alcohol intake: former Drinks per week: 0 Substance use: never Substance use type: does not use Lack of Transportation: YES Lack of Food: Never True Current Housing: I Have Housing Concerned About Future Housing: No Difficulty Paying Gas/Electric Bills: No Difficulty Paying for Meds: No Currently Unemployed: No Education: High School Diploma/GED Difficulty w/ Childcare or Family Care: No Living arrangements: with family Occupation/Education: occupation 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 HEAD: Normocephalic, atraumatic. EYES: PERRLA and EOMI. ENT: Nares clear, no rhinorrhea or epistaxis. Mucous membranes moist. Oropharynx without tonsillar hypertrophy exudate or other lesions. NECK: Supple. No adenopathy or masses. CHEST: No respiratory distress. Clear to auscultation. No wheezes rales or rhonchi HEART: Regular rate and rhythm. No murmur heard. Normal peripheral pulses. ABDOMEN: Focal right lower quadrant tenderness present. Soft, nondistended, normal active bowel sounds. No rigidity MSK: Normal range of motion. No edema. SKIN: Warm, dry, no rash. NEURO: Alert and oriented x4. No focal deficits. PSYCH: Normal mood and affect. Course Vital Signs Vital signs: Vital Signs Temperature 97.9 F 11/15/23 13:39 Pulse Rate 77 11/15/23 13:39 Respiratory Rate 16 11/15/23 13:39 Blood Pressure 156/76 H 11/15/23 13:39 Pulse Oximetry 96 11/15/23 13:39 Oxygen Delivery Room Air 11/15/23 13:39 Temperature 97.9 F 11/15/23 13:39 Pulse Rate 77 11/15/23 13:39 Respiratory Rate 16 11/15/23 13:39 Blood Pressure 156/76 H 11/15/23 13:39 Pulse Oximetry 96 11/15/23 13:39 Oxygen Delivery Room Air 11/15/23 13:39 MDM - Abdominal Pain MDM
== END 2023-11-15 15:47 | disposition home or self-care (01) ==
PROVIDERS: Student in an Organized Health Care Education/Training Program; Emergency Provider Physician Assistant; PCP Family Medicine
DX: R10.9 Unspecified abdominal pain (principal); I10 Essential (primary) hypertension; M17.11 Unilateral primary osteoarthritis, right knee; Z85.828 Personal history of other malignant neoplasm of skin; Z85.118 Personal history of other malignant neoplasm of bronchus and lung; Z87.891 Personal history of nicotine dependence
CPT/HCPCS: 36415; 74177; 80053; 81003; 83690; 85025; 99284; Q9967

== ENCOUNTER 2023-12-02 08:07 | Outpatient (CLI) | payer BC, SELFPAY ==
--- NOTE | ~2023-12-02 | CT_ITS ---
CT diagnostic chest w con Ordering provider: Atul Ortega, DO History: 68 years Female with . restaging lung cancer . Comparison: August 29, 2023 Technique: CT chest with IV contrast. Radiation reduction technique utilized. DLP is 281.66 mGy. 75 mL of Omnipaque 350 was given IV. Findings: VISUALIZED THORACIC INLET: Normal. MEDIASTINUM: Aorta/coronary arteries: Mild atheromatous disease. Heart/other: The heart is not enlarged. Lymph nodes: Enlarged right paratracheal necrotic lymph node is noted which measures 2.2 x1.9x 2.8 cm . Soft tissue density in the prevascular area is also noted which was not seen in the previous study. L ymphadenopathy is not excluded. Left hilar mass is seen which measures 1.9 x 1.9 cm. Unchanged. Left hilar lymph node is seen measuring 1.8 x 1.1 also unchanged. Small precarinal lymph node most likely unchanged. LUNGS: Atelectasis versus pneumonia in the left upper lobe posteriorly unchanged from previous examin ation distal to the mass seen in the left hilum. Groundglass appearance in the right lower lobe area is unchanged. Post radiation changes in the right paraspinal area and upper lobe area. No infiltrates or effusions. No pneumothorax. VISUALIZED UPPER ABDOMEN: Small sliding hiatus hernia. Fat infiltration of the liver. Left kidney cys t. Slightly prominent left adrenal gland with adenoma measuring 1.7 x 1.3 cm. All findings are unchan ged. Otherwise, the visualized upper abdomen is normal. MUSCULOSKELETAL: Soft tissues: The superficial soft tissues are normal. Bones: Age appropriate degenerative changes of the spine. IMPRESSION: Enlarged right paratracheal lymph node compared to study. The node measures 2.2 x 1.9 x 2.8 cm. Other findings are unchanged from previous examination Reviewed, dictated and finalized at location A.
[2023-12-02 08:28] LABS: Estimated Glomerular Filt Rate > 60
== END 2023-12-02 08:08 ==
LOC: MICIMG 08:08
PROVIDERS: PCP Family Medicine; Visit Provider Internal Medicine Medical Oncology
DX: C34.12 Malignant neoplasm of upper lobe, left bronchus or lung (principal); R59.0 Localized enlarged lymph nodes
CPT/HCPCS: 71260; Q9967

== ENCOUNTER 2023-12-16 10:20 | Outpatient (CLI) | payer BC, SELFPAY ==
--- NOTE | ~2023-12-16 | PE_ITS ---
EXAMINATION: PET skull to mid thigh DATE: 12/16/2023 12:22 INDICATION: Left upper lobe lung cancer TECHNIQUE: Blood glucose level was 116 mg/dL. 10.025 mCi of 18-fluorodeoxyglucose (18-FDG) was admini stered i.v. Low dose computed tomography (CT) images were acquired from the base of the brain to the proximal thighs for attenuation correction and anatomic localization. Positron emission tomography (P ET) images were acquired in the same distribution beginning 62 minutes after injection. Images includ ing fused PET/CT images were reconstructed in axial, coronal, and sagittal planes. Automated exposure control technique was employed. The dose-length product was 1077.28mGy-cm. COMPARISON: Chest CT dated 12/12/2023, CT abdomen and pelvis dated 11/15/2023 and PET/CT dated 05/22/20 23 FINDINGS: Head/neck: There is symmetric increased activity in the oral cavity, lingual tonsils, laryngeal muscles and ocul ar muscles without CT correlate, likely physiologic. No pathologically enlarged cervical lymphadenopa thy or suspicious foci of increased FDG uptake in the visualized head or neck. Chest: Mild emphysema. No change in consolidation in the left upper lobe and superior segment of the left lo wer lobe with associated volume loss and unchanged mild FDG uptake with maximal SUV of 3.9. Unchanged mild elevation right hemidiaphragm with contrast passing the dependent right lower lobe likely secon belgica atelectasis. No suspicious pulmonary nodules or pleural effusion. Heart size is normal. No peric ardial effusion. New 2.1 x 2.1 cm FDG avid right paratracheal lymph node with maximal SUV of 13.1 guille picious for metastatic disease. No other pathologically enlarged or abnormally FDG avid thoracic lymp hadenopathy. Abdomen/pelvis/proximal thighs: Physiologic renal accumulation and excretion of FDG activity in the kidneys, bladder and along portio ns of ureters. 4.4 cm low-attenuation photopenic left renal cyst. Normal degree and heterogenous petty ariana of increased uptake throughout the liver without radiologic correlate or dominant FDG avid lesion . The gallbladder, pancreas, spleen and bilateral adrenal glands are normal. Mild uptake scattered th roughout the bowels without radiologic correlate, also likely physiologic. Uterus and bilateral adnex a are unremarkable. No other abnormal foci of increased FDG uptake or pathologically enlarged lymphad enopathy in the abdomen, pelvis or proximal thighs. Musculoskeletal: Symmetric mild likely enthesopathic uptake at the bilateral ischial tuberosities. Symmetric mild syno vial uptake at the bilateral shoulders and additional mild likely enthesopathic uptake at the right g reater trochanter. No suspicious lytic, blastic or abnormally FDG avid bone lesions. IMPRESSION: 1. New 2.1 cm prominently FDG avid right paratracheal lymph node concerning for metastatic disease. N o other lesions suspicious for primary malignancy or metastatic disease identified in the head/neck, chest, abdomen or pelvis. 2. No change in chronic consolidation with volume loss and mild increased uptake at the left upper lo be and suprasylvian with left lower lobe consistent with primary bronchogenic carcinoma and changes o f radiation treatment. Reviewed, dictated and finalized at location A. IMPRESSION: 1. New 2.1 cm prominently FDG avid right paratracheal lymph node concerning for metastatic disease. No other lesions suspicious for primary malignancy or meta static disease identified in the head/neck, chest, abdomen or pelvis. 2. No change in chronic consolidation with volume loss and mild increased uptak e at the left upper lobe and suprasylvian with left lower lobe consistent with primary bronchogenic carcinoma and changes of radiation treatment.
[2023-12-16 10:44] LABS: Glucose Point of Care 116 mg/dl (65-105)
== END 2023-12-16 10:21 | disposition home or self-care (01) ==
PROVIDERS: PCP Family Medicine; Visit Provider Internal Medicine Medical Oncology
DX: C34.12 Malignant neoplasm of upper lobe, left bronchus or lung (principal); R59.0 Localized enlarged lymph nodes
CPT/HCPCS: 78815; A9552

== ENCOUNTER 2024-09-24 11:31 | Outpatient (CLI) | payer BC, SELFPAY ==
--- NOTE | ~2024-09-24 | CT_ITS ---
Clinical Indication: Lung cancer restaging CT Scan of the Chest with Contrast: Technique: Contiguous sections were acquired throughout the chest after intravenous administration of 75 cc of Omnipaque 350. Dose reduction technique was used on this scan by utilizing automated exposu re control and iterative reconstruction technique. The dose-length product (DLP) was 260.05 mGy-cm. COMPARISON: 12/02/2023 Findings: Mildly prominent lymph nodes at the left hilum and AP window region are similar to prior exam. Previo usly noted right paratracheal lymph nodes decreased from prior exam, now measuring 1 cm in short axis . There is no filling defect in the pulmonary arterial tree to suggest pulmonary embolus. There is no evidence of aortic dissection or aneurysm. There is no evidence of pleural or pericardial effusion. Stable pleural based on masslike consolidation at the posterior left upper lobe extending towards the hilum. Mild emphysema present. Images through the upper abdomen reveal probable diffuse hepatic steatosis. Stable left adrenal nodul e. Impression: Stable pleural-based consolidation at the posterior left upper lobe extending towards the hilum, sugg estive of posttreatment/post radiation change. Stable mildly prominent left hilar and AP window region lymph nodes. Right paratracheal lymph node is decreased from prior exam. Stable left adrenal nodule. Mild emphysema. Reviewed, dictated and finalized at location . Impression: Stable pleural-based consolidation at the posterior left upper lobe extending t owards the hilum, suggestive of posttreatment/post radiation change. Stable mildly prominent left hilar and AP window region lymph nodes. Right para tracheal lymph node is decreased from prior exam. Stable left adrenal nodule. Mild emphysema.
== END 2024-09-24 11:32 | disposition home or self-care (01) ==
LOC: MICIMG 11:35
PROVIDERS: PCP Family Medicine; Visit Provider Internal Medicine Medical Oncology
DX: C34.12 Malignant neoplasm of upper lobe, left bronchus or lung (principal); J18.1 Lobar pneumonia, unspecified organism; R59.0 Localized enlarged lymph nodes; D35.02 Benign neoplasm of left adrenal gland; J43.0 Unilateral pulmonary emphysema [MacLeod's syndrome]
CPT/HCPCS: 71260; Q9967

== ENCOUNTER 2024-11-10 08:32 | Outpatient (CLI) | payer BC, SELFPAY ==
--- NOTE | ~2024-11-10 | US_ITS ---
Limited Abdominal Sonogram: Real-time sonographic imaging of the right upper quadrant was performed. Clinical History: Fatty liver Findings: The liver appears echogenic, with no evidence of mass lesion or bile duct dilatation. Main portal vein demonstrates normal direction of flow. The gallbladder is well distended, and appears no rmal with no evidence of gallstone or wall thickening. The common bile duct measures 10 mm. The visu alized pancreas, aorta, and IVC are unremarkable. Right kidney unremarkable. Impression: Diffuse fatty infiltration of the liver. Mildly dilated common bile duct, nonspecific. No intrahepatic biliary dilatation or gallstones seen. Consider MRCP for further evaluation as indicated. Reviewed, dictated and finalized at location . Impression: Diffuse fatty infiltration of the liver. Mildly dilated common bile duct, nonspecific. No intrahepatic biliary dilatatio n or gallstones seen. Consider MRCP for further evaluation as indicated.
--- OUTSIDE RECORDS SUMMARY | 2024-11-10 08:53 | XMS_ITS | Referral Summary ---
Author Organization [facility] Address [address] [place] [address] Care Team Providers Care Lithographic Stripper Name Role Phone Atul Ortega DO Unavailable Ish Palacios MD Unavailable Rangel Wiggins MD Primary Care Provider Encounters Date Type Department Care Team Description 10/04/2024 Orders Only [facility] [address] [facility] [address] [place] [address] Provider, MD Cortes 10/01/2024 2:00 PM CDT Office Visit [facility] [facility] [address] [place] [address] Atul Ortega DO Malignant neoplasm of upper lobe of left lung (HCC) (Primary Dx) 09/24/2024 - 09/24/2024 11:59 PM CDT Hospital Encounter [facility] Outside Images [address] [place] [address] Discharge Disposition: Discharge to home or self care from Last 3 Months Allergies Active Allergy Reactions Criticality Noted Date Comments Omeprazole Hives Medium 06/29/2018 Penicillins Rash Medium 05/25/2018 Medications HYDROcodone-edilia taminophen (NORCO) 7.5-325 mg per tabletIndicatio ns:Pain Take 1 tablet by mouth every 4 (four) hours as needed for pain 90 tablet 9 Active levalbuterol (XOPENEX HFA) 45 mcg/actuation inhaler 2 PUFFS EVERY 6 HOURS PRN WHEEZING 15 g 1 Active albuterol HFA (PROVENTIL HFA,VENTOLIN HFA,PROAIR HFA) 90 mcg/actuation inhaler as needed [address] (PROTONIX) 40 mg EC tablet Take 1 tablet (40 mg total) by mouth daily 1 Active clobetasoL (TEMOVATE) 0.05 % cream APPLY TOPICALLY TO THE AFFECTED AREA TWICE DAILY FOR 2 WEEKS 3 Active ondansetron (ZOFRAN) 4 mg tablet TAKE 1 TABLET BY MOUTH EVERY 6 HOURS NEEDED FOR NAUSEA OR VOMITING 2 Active IBUPROFEN ORAL Take by mouth A ctive nystatin powder 3 Active benazepriL-hydr ochlorothiazide (LOTENSIN HCT) 20-12.5 mg per tablet 4 Active multivitamin tabletIndicatio ns:Vitamin Deficiency Prevention Take 1 tablet by mouth All natural Active cholecalciferol (VITAMIN D-3) 2000 unit tablet Take 1 tablet (2,000 Units total) by mouth daily Active magnesium gluconate (MAGONATE) 500 mg (27 mg elemental) tabletIndicatio ns:hypomagnesem ia Active LORazepam (ATIVAN) 0.5 mg tabletIndicatio ns:anxiety Take one tablet 30 minutes prior to radiation treatment for anxiety. Do not drive after taking this medication. May cause dizziness/ unsteady ambulation. 5 tablet 4 Active al & mag hydroxide with simethicone-dip henhydramine-li docaine (MAGIC MOUTHWASH) suspension [id number] s:Malignant neoplasm of upper lobe of left lung (HCC),Personal history of radiation therapy,Nodule of upper lobe of right lung Take 15 mL by mouth every 4 (four) hours as needed (radiation esophagitis) 500 mL 2 4 Active diazePAM (VALIUM) 10 mg tablet Take 1 tablet (10 mg total) by mouth once for 1 dose Take 30 minutes prior to PET scan - MUST HAVE A PLANT OPERATOR HELPER TO AND FROM THE TEST 1 tablet 5 Active Stiolto Respimat 2.5-2.5 mcg/actuation inhaler INHALE 2 PUFFS BY MOUTH DAILY 4 Active Active Problems Problem Noted Date Diagnosed Date Mediastinal lymphadenopathy 12/31/2023 Nodule of upper lobe of right lung 11/25/2022 Personal history of radiation therapy 02/06/2021 Persons encountering health services in other specified circumstances 09/03/2018 Malignant neoplasm of upper lobe of left lung Cancer Staging:Clinical stage from 06/18/2018:Stage IIIA(cT4, cN0, cM0) - Signed by Atul Otrega DO on 06/18/2018 Immunizations Immunization Administration Dates Next Due Pfizer SARS-CoV-2 Monovalent Vaccination (12+ Yrs) PURPLE 11/25/2020,11/04/2020 Social History Tobacco Use Types Packs/Day Years Used Date Smoking Tobacco: Former Cigarettes 1 50 1 07/02/1967 - 05/01/2018 Smokeless Tobacco: Never Tobacco Cessation:Counseling Given: Not Answered Alcohol Use Standard Drinks/Week Comments No 0 (1 standard drink = 0.6 oz pur e alcohol) AUDIT-C Answer Date Recorded Q1: How often do you have a drink containing alcohol? Never 07/09/2024 Q2: How many drinks containi ng alcohol do you have on a typical day when you are drinking? Patient does not drink Q3: How often do you have si x or more drinks on one occasion? Never 07/09/2024 Personal Safety Answer Date Recorded Have you ever been in or are you currently in a harmful physical or emotional relationship or is someone making you feel afraid or unsafe? 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 on file 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 Not on file Not on file Not on file Last Filed Vital Signs Vital Sign Reading Time Taken Comments Blood Pressure 196/78 10/01/2024 1:54 PM CDT pt states she is nervous and anxious Pulse 82 10/01/2024 1:54 PM CDT Temperature 36.4 C (97.6 F) 10/01/2024 1:54 PM CDT Respiratory Rate 16 10/01/2024 1:54 PM CDT Oxygen Saturation 94% 10/01/2024 1:5 4 PM CDT Inhaled Oxygen Concentration - - Weight 78.7 kg (173 lb 8 oz) 10/01/2024 1:54 PM CDT Height 154.9 cm (5' 1) 07/09/2024 2:35 PM NURSE OFFICE with shoes, patient refused to take off Body Mass Index 32.78 07/09/2024 2:35 PM NURSE OFFICE Plan of Treatment Not on file Procedures Procedure Name Priority Date/Time Associated Diagnosis Comments POCT CREATININE FOR CONTRAST EVALUATION Routine 09/24/2024 11:[address] BODY OUTSIDE REFERENCE Routine 09/24/2024 12:00 AM CDT from Last 3 Months Results * POCT creatinine for contrast evaluation (09/24/2024 11:41 AM CDT) Blood [facility] Provider POINT OF CARE TEST ORDERA BLES Final Result * CT Body Outside Reference (09/24/2024 12:00 AM CDT) Narrative IRENA_LAYO_MHB_MHE - 10/08/2024 12:22 PM CDT This order has been auto-finalized and does not contain a result. us Provider Transcribed Order IMG CT PROCEDURES Fin al Result RAD_CLARIO_MHB_MHE from Last 3 Months [place] Advance Directives For more information, please contact: [phone] * Full Code (Latest Code Status on File) Date Activated Date Inactivated Comments 05/27/2018 3:26 PM 05/27/2018 6:13 PM Care Teams Lithographic Stripper Relationship Specialty Start Date End Date Rangel Wiggins MD [address] [place] [address] PCP - General Family Medicine 07/26/24 Atul Ortega DO [address] [place] [address] Medical Oncologist/Hematologis t Hematology and Oncology 06/19/18 Ish Palacios MD [address] [facility] [address] [place] [address] Radiation Oncologist Radiation Oncology 03/29/24
--- OUTSIDE RECORDS SUMMARY | 2024-11-10 08:53 | XMS_ITS | CONTINUITY OF CARE DOCUMENT ---
Author Name mak corado Address Unknown Organization [facility] Address [address] [facility] [address] [place] [address] Phone [phone] Care Team Providers Care Steamfitter Apprentice Name Role Phone Carlos Manuel Crenshaw MD Unavailable DOMITILA DELATORRE, KARSON F Unavailable DOMITILA DELATORRE, KARSON F Unavailable INSURANCE PROVIDERS Payer name Policy type / Coverage type [employer] red democrat ID [facility] [id number]
--- OUTSIDE RECORDS SUMMARY | 2024-11-10 08:53 | XMS_ITS ---
Author Organization [facility] Address [address] [place] [address] Care Team Providers Care Bone Plant Supervisor Name Role Phone Atul Ortega DO Unavailable [phone] Ish Palacios MD Unavailable Rangel Wiggins MD Primary Care Provider + [phone] Active Problems Problem Noted Date Diagnosed Date Mediastinal lymphadenopathy 12/31/2023 Nodule of upper lobe of right lung 11/25/2022 Personal history of radiation therapy 02/06/2021 Persons encountering health services in other specified circumstances 09/03/2018 Malignant neoplasm of upper lobe of left lung Cancer Staging:Clinical stage from 06/18/2018:Stage IIIA(cT4, cN0, cM0) - Signed by Atul Ortega DO on 06/18/2018 Current Treatment and Therapy Plans No current plan information found. Past Treatment and Therapy Plans Line Care Plan Name Start Date Discontinue Date Treatment Medications Discontinue Reason Plan Provider IV MAINTENANCE THERAPY PLAN 09/07/2018 05/02/2022 No medications scheduled. Therapy Complete Atul Ortega DO Oncology Chemotherapy Treatment Plan Name Start Date Discontinue Date Treatment Medications Discontinue Reason Plan Provider Cycles CISplatin / Etoposide Radiation 21 Day Cycles - Small Cell Lung 06/29/2018 11/24/2018 CISplatin (PLATINOL)CISp latin (PLATINOL) IVPB in 250 mLetoposide (TOPOSAR)etopo side (VEPESID) IVPB in 500 mL Therapy Complete Atul Ortega DO 6 of 6 cycles started Oncology Supportive Care Therapy Plan Plan Name Start Date Discontinue Date Treatment Medications Discontinue Reason Plan Provider HYDRATION THERAPY PLAN 08/17/2018 11/24/2018 No medications scheduled. Therapy Complete Atul Ortega, DO Radiation Treatments * Course [id number] 03/01/2024 - 03/25/2024 Treatment Period Energy Fraction Dose Fractions Total Dose Plans Planned P+MEDSTNM 03/01/2024 - 03/25/2024 400 15 / 6,000 Reference Points Delivered P+ MEDSTNM 03/01/2024 - 03/25/2024 6,005 * Course [id number]_202212/09/2022 - 12/18/2022 Treatment Period Energy Fraction Dose Fractions Total Dose Plans Planned RUL SBRT 12/09/2022 - 12/18/2022 1,100 5 / 5,500 Reference Points Delivered RUL [id number] 12/09/2022 - 12/18/2022 5,500 Lifetime Dose Tracking * Chemical Lifetime Dose Automatic Entry Manual Entr y etoposide 1,209.623 mg/m2 (2,160 mg) 1,209.623 mg/m 2 (2,160 mg) 0 mg/m2 (0 mg)
--- OUTSIDE RECORDS SUMMARY | 2024-11-10 08:53 | XMS_ITS | Clinical Summary ---
Author Organization [facility] Address [address] [place] [address] Care Team Providers Care Firer Boiler Name Role Phone Atul Ortega DO Unavailable [phone] Ish Palacios MD Unavailable Rangel Wiggins MD Primary Care Provider Allergies Active Allergy Reactions Criticality Noted Date [...] with simethicone-dip henhydramine-li docaine (MAGIC MOUTHWASH) suspension 0-2-3Hismtvipzi s:Malignant neoplasm of upper lobe of left [...] to PET scan - MUST HAVE A WHOLESALE AGRONOMIST TO AND FROM THE TEST 1 tablet [...] Signed by Atul Ortega DO on 06/18/2018 Encounters Date Type Department Care Team Description 10/04/2024 Orders Only [facility] [address] [place] [address] [place] [address] Provider, Historical, MD 10/01/2024 2:00 PM CDT Office Visit [facility] On[facility] [facility] [address] [place] [address] Atul Ortega, DO Malignant neoplasm of upper lobe of left lung (HCC) (Primary Dx) 09/24/2024 - 09/24/2024 11:59 PM CDT Hospital Encounter [facility] Outside Images [address] [place] [address] Discharge Disposition: Discharge to home or self care from Last 3 Months Immunizations Immunization Administration Dates Next Due Pfizer SARS-CoV-2 Monovalent Vaccination (12+ Yrs) PURPLE 11/25/2020,11/04/2020 Surgical History Surgery Date Site/Laterality Comments TUBAL LIGATION PERCUTANEOUS NEEDLE BIOPSY LUNG LEFT 05/27/2018 Left COLONOSCOPY Medical History Medical History Date Comments Arthritis Asthma COPD (chronic obstructive pulmonary disease) (HC C) Cancer (HCC) skin cancer Hypertension GERD (gastroesophageal reflux disease) Liver disease Lung cancer (HCC) Family History Medical History Relation Name Comments No Known Problems Brother No Known Problems Father Alzheimer's disease Mother No Known Problems Sister Relation Name Status Comments Brother Alive Father Mother Sister Alive Social History Tobacco Use Types Packs/Day Years [...] on file Legal Sex Female 12:59 AM OPHTHALMOLOGY ASSISTANT Gender Identity Not on file Sexual Orientation Not on file 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 on file 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 Not on file Not on file Not on file Obstetrics History Last Filed Vital Signs Vital Sign Reading [...] 154.9 cm (5' 1) 07/09/2024 2:35 PM OPHTHALMOLOGY ASSISTANT with shoes, patient refused to take off Body Mass Index 32.78 07/09/2024 2:35 PM OPHTHALMOLOGY ASSISTANT Plan of Treatment Health Maintenance Due Date Last Done Comments Breast Cancer Screening-Mammogram 1955 Colon Cancer Screening-Colonoscopy 1955 Depression Screening 1955 Hepatitis C Screening 1955 Osteoporosis Screening-Bone Density Scan 1953 DTaP/Tdap/Td Vaccine (1 - Tdap) 01/08/1964 Hepatitis B Screening 1971 Pneumococcal vaccine 65+ (1 of 2 - PCV) 01/08/1972 Zoster Vaccine (1 of 2) 01/08/1972 Well Visit 65+ 2018 Covid-19 Vaccine (3 - Pfizer risk series) 12/23/2020 11/25/2020, 11/04/2020 Influenza Vaccine (Season Ended) 2025 Fall Risk Assessment 02/03/2025 02/04/2024, 01/09/20 24 Procedures Procedure Name Priority Date/Time Associated Diagnosis Comments POCT CREATININE FOR CONTRAST EVALUATION Routine 09/24/2024 11:[address] BODY OUTSIDE REFERENCE Routine 09/24/2024 12:00 AM CDT from Last 3 Months Results * POCT creatinine for contrast evaluation (09/24/2024 11:41 AM CDT) Blood Historical Provider MD POINT OF CARE TEST ORDERA BLES Final Result * CT Body Outside Reference (09/24/2024 12:00 AM CDT) Narrative ANIA_MHE - 10/08/2024 12:22 PM CDT This order has been auto-finalized and does not contain a result. us Provider Transcribed Order IMG CT PROCEDURES Fin al Result RAD_LAYO_MHB_MHE from Last 3 Months Insurance [place] Advance Directives For more information, please contact: [phone] * Full Code (Latest Code Status on File) Date Activated Date Inactivated Comments 05/27/2018 3:26 PM 05/27/2018 6:13 PM Care Teams Firer Boiler Relationship Specialty Start Date End Date Rangel Wiggins MD [address] [place] [address] PCP - General Family Medicine 07/26/24 Atul Ortega DO [address] [place] [address] Medical Oncologist/Hematologis t Hematology and Oncology 06/19/18 Ish Palacios MD [address] [place] [address] [address] [place] [address] Radiation Oncologist Radiation Oncology 03/29/24
== END 2024-11-10 08:33 | disposition home or self-care (01) ==
PROVIDERS: PCP Family Medicine; Visit Provider Nurse Practitioner Family
DX: K76.0 Fatty (change of) liver, not elsewhere classified (principal); K83.8 Other specified diseases of biliary tract
CPT/HCPCS: 76705

== ENCOUNTER 2024-12-24 13:37 | Outpatient (CLI) | payer BC, SELFPAY ==
--- NOTE | ~2024-12-24 | CT_ITS ---
Clinical Indication: Lung cancer CT Scan of the Chest with Contrast: Technique: Contiguous sections were acquired throughout the chest after intravenous administration of 75 cc of Omnipaque 350. Dose reduction technique was used on this scan by utilizing automated exposu re control and iterative reconstruction technique. The dose-length product (DLP) was 258.93 mGy-cm. COMPARISON: 09/24/2024 Findings: There is no evidence of any significant mediastinal, hilar or axillary lymphadenopathy. There is no f illing defect in the pulmonary arterial tree to suggest pulmonary embolus. There is no evidence of ao rtic dissection or aneurysm. There is no evidence of pleural or pericardial effusion. Stable consolidation the posterior left upper lobe extending towards left hilum. Probable mild post r adiation change in the medial right upper lobe. Mild emphysema noted. Images through the upper abdomen reveal stable left adrenal nodule. Impression: Stable consolidation posterior left upper lobe extending towards the hilum, compatible with treated d isease/postradiation change. Probable additional mild postradiation change in the medial right upper lobe. Reviewed, dictated and finalized at location M. Impression: Stable consolidation posterior left upper lobe extending towards the hilum, com patible with treated disease/postradiation change. Probable additional mild pos tradiation change in the medial right upper lobe.
[2024-12-24 14:02] LABS: Estimated Glomerular Filt Rate > 60
== END 2024-12-24 13:38 | disposition home or self-care (01) ==
LOC: MICIMG 13:39
PROVIDERS: PCP Family Medicine; Visit Provider Internal Medicine Medical Oncology
DX: C34.12 Malignant neoplasm of upper lobe, left bronchus or lung (principal)
CPT/HCPCS: 71260; Q9967

== ENCOUNTER 2025-04-01 10:25 | Outpatient (CLI) | payer BC, SELFPAY ==
--- NOTE | ~2025-04-01 | CT_ITS ---
EXAMINATION:CT diagnostic chest w con DATE: 04/01/2025 10:53 INDICATION: Neoplasm of left lung TECHNIQUE: Computed tomography (CT) of the chest was performed with intravenous contrast. The dose-length product (DLP) was 223.63 mGy-cm. COMPARISON: December 24, 2024 FINDINGS: Masslike consolidation in the posterior apical region of the left upper lobe measuring 6.4 x 3.7 x 2.8 cm is unchanged in appearance or size given variation in measurement. Changes extend to the suprahilar region which also appear similar. Few air bronchograms are unchanged in appearance. Mild fibrocystic pain changes of the medial right upper lobe also appear unchanged. No new nodules or masses seen. No bulky lymphadenopathy. 1.6 cm nodular thickening of left adrenal gland appears stable. Right adrenal gland appears normal. Small hiatal hernia. Large left renal cyst. No acute process seen in the visualized portions of the upper abdomen, bony thorax or extrathoracic soft tissues. Consolidation effusion or pneumothorax. Central and large airways are patent. IMPRESSION: Stable exam compared to December 24, 2024 with no new lesions or progression in disease. Reviewed, dictated and finalized at location A. MACHINE OPERATOR IMPRESSION: Stable exam compared to December 24, 2024 with no new lesions or prog ression in disease.
[2025-04-01 10:45] LABS: Estimated Glomerular Filt Rate > 60
== END 2025-04-01 10:26 | disposition home or self-care (01) ==
LOC: MICIMG 10:25
PROVIDERS: PCP Family Medicine; Visit Provider Internal Medicine Medical Oncology
DX: C34.12 Malignant neoplasm of upper lobe, left bronchus or lung (principal)
CPT/HCPCS: 71260; Q9967